=== PATIENT | female | born 1935 | race Caucasian/White ===

== ENCOUNTER 2019-08-06 16:30 | Inpatient (IN) | payer OTHER ==
[~2019-08-06] VITALS: Ht 160 cm; Wt 71.7 kg
--- NOTE | 2019-08-06 16:30 | NUR ---
PT BIBA TO BED 3
--- NOTE | 2019-08-06 16:35 | NUR ---
PT PLACED ON 3 LEAD ECG AND PULSE OX.
--- NOTE | 2019-08-06 16:39 | NUR ---
DR. TORRES AT BEDSIDE.
--- NOTE | 2019-08-06 16:43 | NUR ---
83/F BIBA ALS FROM [place]. CC: LOWER ABD PAIN AND DISTENSION, TEMP 99 F, N/V. PT HAS RECENT DX OF CHOLECYSTITIS BUT DID NOT GET SURGERY. SLIGHTLY TACHYCARDIC. 99.3 TEMP AT TRIAGE. PLACED ON BEDSIDE MONITOR. GCS 13. PORTUGUESE SPEAKING. HX- HLD, GERD, HTN, DEMENTIA, PARKINSON'S, DM, PSYCHOSIS
[2019-08-06 16:45] VITALS: BP 137/66
[2019-08-06] MEDS ORDERED: ONDANSETRON 4 MG/2 ML VIAL IVP ONE (17:00)
[2019-08-06] MEDS ORDERED: MORPHINE SULFATE 2 MG/ML SYR IVP ONE (17:00)
[2019-08-06] MEDS ORDERED: NACL 0.9% 1,000 ML IV ONE (17:00)
--- NOTE | 2019-08-06 17:03 | NUR ---
Kellen campa in ED - 08/06/[address] TORRES MADE AWARE THAT NO URINE OUTPUT FROM STRAIGHT CATH.
--- NOTE | 2019-08-06 17:32 | NUR ---
ATTEMPTED TO COLLECT URINE VIA STRAIGHT CATH BUT UNABLE DUE TO PT POSITIONING AND BODY HABITUS. WILL ATTEMPT TO OBTAIN URINE WHEN ANOTHER NURSE ABLE TO ASSIST WITH STRAIGHT CATH.
--- NOTE | 2019-08-06 17:32 | NUR ---
U/S TECH AT BEDSIDE
--- NOTE | 2019-08-06 17:35 | NUR ---
NOTIFIED LAB TO COME DRAW LABS.
--- NOTE | 2019-08-06 17:40 | NUR ---
BLASTING MACHINE OPERATOR AT BEDSIDE
[2019-08-06 18:01] LABS: HEMATOCRIT 47.4 % (36-48); HEMOGLOBIN 15.3 g/dL (12.0-16.0); MEAN CORPUSCULAR HEMOGLOBIN 31 pg (27-31); MEAN CORPUSCULAR HGB CONC 32 g/dL (33-37); MEAN CORPUSCULAR VOLUME 94.7 fL (80-94); PLATELET COUNT (AUTO) 236 K/uL (140-450); RED BLOOD CELL COUNT(AUTO) 5.01 MIL/uL (4.20-5.40); RED CELL DISTRIBUTION WIDTH 15.7 % (11.6-13.7); WHITE BLOOD COUNT (AUTO) 25.7 K/uL (4.8-10.8)
[2019-08-06] MEDS ORDERED: metroNIDAZOLE 500 MG/NS PREMIX 100 ML IV ONE (18:10)
[2019-08-06] MEDS ORDERED: cefTRIAXone 2,000 MG in DEXTROSE 5% 100 ML IV ONE (18:10)
[2019-08-06 18:35] LABS: BASOPHILS % (MANUAL) 0 % (0-2); EOSINOPHILS % (MANUAL) 0 % (0-4); LYMPHOCYTES % (MANUAL) 4 % (20-46); MONOCYTES % (MANUAL) 4 % (5-12)
--- NOTE | 2019-08-06 18:52 | NUR ---
PT URINATED PRIOR TO STRAIGHT CATH. STRAIGHT CATH INSERTED WITH LESS THAN 5 ML RETURN OF YELLOW URINE. Addendum: 08/06/19 at 1931 by EMELY URINATED SMALL AMOUNT PRIOR TO STRAIGHT CATH
--- NOTE | 2019-08-06 19:03 | NUR ---
DR. TORRES MADE AWARE THAT NO URINE OUTPUT FROM STRAIGHT CATH.
[2019-08-06] MEDS ORDERED: DOCUSATE SODIUM 100 MG GELCAP PO PRN (19:20)
[2019-08-06] MEDS ORDERED: ACETAMINOPHEN 325 MG TAB PO PRN (19:20)
[2019-08-06] MEDS ORDERED: ONDANSETRON 4 MG/2 ML VIAL IM/IVP PRN (19:20)
[2019-08-06] MEDS ORDERED: MORPHINE SULFATE 2 MG/ML SYR IVP PRN (19:20)
--- NOTE | 2019-08-06 19:32 | NUR ---
LAB STATES RERUNNING CMP RESULTS CURRENTLY.
[2019-08-06] MEDS ORDERED: DEXTROSE 50% 50 ML SYR IVP PRN (19:35)
[2019-08-06] MEDS ORDERED: cefTRIAXone 2,000 MG VIAL ONE (19:38)
[2019-08-06 19:52] LABS: PROTHROMBIN TIME 12.4 secs (10.8-13.4)
[2019-08-06] MEDS ORDERED: DOCU-299 PO (20:04)
[2019-08-06] MEDS ORDERED: ACET-2619 PO (20:06)
[2019-08-06] MEDS ORDERED: PRAM0.5T4 PO (20:08)
[2019-08-06] MEDS ORDERED: OLAN2.5T1 PO (20:09)
[2019-08-06 20:13] LABS: ALBUMIN 2.2 g/dL (3.4-5.0); ANION GAP 16.2 (8-16); ASPARTATE AMINOTRANSFERASE 41 U/L (15-37); CARBON DIOXIDE 24.5 mmol/L (21-32); CHLORIDE 107 mmol/L (98-107); CREATININE 2.5 mg/dL (0.6-1.3); GLUCOSE 143 mg/dL (74-106); LIPASE 328 U/L (73-393); POTASSIUM 3.7 mmol/L (3.5-5.1); SODIUM SERUM 144 mmol/L (136-145); TOTAL BILIRUBIN 0.5 mg/dL (0.0-1.0)
[2019-08-06 20:17] LABS: UREA NITROGEN, BLOOD 62 mg/dL (7-18)
--- NOTE | 2019-08-06 20:28 | NUR ---
CHECKED PT SKIN WITH FANTASMA BUSTILLOS. NO WOUNDS NOTED DURING WOUND CHECK.
[2019-08-06 20:38] LABS: MAGNESIUM 2.6 mg/dL (1.8-2.4); PHOSPHORUS 4.4 mg/dL (2.5-4.9); THYROID STIMULATING HORMONE 3.03 uIU/mL (0.34-3.74)
--- NOTE | 2019-08-06 20:50 | NUR ---
PT BROUGHT UP BY ADALBERTO, SHE IS AOX1 ON 2 LITERS VIA N/C.PT BREATHING WITH OPEN MOUTH AND USING ACCESSORY MUSCLES. PT LUNGS CLEAR BUT WHEEZING WITH EXPIRATION. 02 STATING AT 96%. T 98.3 RR 24 B/P 127/66 P 100. STOMACH ROUND AND DISTENDED BOWEL SOUNDS PRESENT. PT SKIN INTACT, SHE HAS A LEFT HAND 20G RUNNING N/S AT 100MLS/HR. PT PLACED ON FALLS PRECAUTIONS DUE TO BEING UNABLE TO AMBULATE. REPORT GIVEN BY ALEXSANDRA AT BEDSIDE.
[2019-08-06 21:00] VITALS: BP 127/66
[2019-08-06] MEDS: BLOOD GLUCOSE MONITORING 1 DEV DEV FS SCH (21:00)
--- NOTE | 2019-08-06 21:00 | NUR ---
Patient will be admitted to care of Dr. Velázquez. Admited to TELE. Will go to room 124B. Belongings list completed. Report to TRESSA Menjivar.
--- NOTE | 2019-08-06 21:15 | NUR ---
RESIDENT DR HARMON AT BEDSIDE EVALUATING PT.
--- NOTE | 2019-08-06 22:10 | NUR ---
PT HAD BLOOD DRAWS AT BEDSIDE AND IS NOW BEING TAKEN DOWN FOR CT OF ABDOMEN/ PELVIS WITHOUT CONTRAST.
--- NOTE | 2019-08-06 22:30 | NUR ---
PT BROUGHT BACK FORM CT SCAN . PT GIVEN ALL DUE MEDS AND FLUIDS RUNNING ORDERED. NUCLEAR MEDICINE CALLED TO MAKE SURE PT IS TO BE NPO AFTER MIDNIGHT FOR HIDA SCAN IN THE AM.
[2019-08-06] MEDS: PANTOPRAZOLE 40 MG INJ VIAL IVP SCH (23:34)
[2019-08-06] MEDS: DEXT 5% /NACL 0.9% 1,000 ML IV SCH (23:34)
[2019-08-07] VITALS: BP 152/84
[2019-08-07 04:00] VITALS: BP 156/76
[2019-08-07] MEDS: BLOOD GLUCOSE MONITORING 1 DEV DEV FS SCH ×4 (06:05→21:00)
[2019-08-07 06:13] LABS: BASOPHILS % (AUTO) 0.1 % (0.0-2.0); HEMATOCRIT 45.3 % (36-48); HEMOGLOBIN 14.4 g/dL (12.0-16.0); LYMPHOCYTES # (AUTO) 0.8 K/uL (2.5-16.5); LYMPHOCYTES % (AUTO) 3.4 % (20.5-51.1); MEAN CORPUSCULAR HEMOGLOBIN 30 pg (27-31); MEAN CORPUSCULAR HGB CONC 32 g/dL (33-37); MEAN CORPUSCULAR VOLUME 95.9 fL (80-94); MONOCYTES % (AUTO) 4.1 % (1.7-9.3); NEUTROPHILS # (AUTO) 22.2 K/uL (1.8-7.7); NEUTROPHILS % (AUTO) 92.4 % (42.2-75.2); PLATELET COUNT (AUTO) 201 K/uL (140-450); RED BLOOD CELL COUNT(AUTO) 4.73 MIL/uL (4.20-5.40); RED CELL DISTRIBUTION WIDTH 15.4 % (11.6-13.7); WHITE BLOOD COUNT (AUTO) 24.1 K/uL (4.8-10.8)
[2019-08-07] MEDS: metroNIDAZOLE 500 MG/NS PREMIX 100 ML IV SCH ×3 (06:23→21:37)
[2019-08-07 06:58] LABS: ANION GAP 14.2 (8-16); CARBON DIOXIDE 27.3 mmol/L (21-32); CHLORIDE 107 mmol/L (98-107); GLUCOSE 157 mg/dL (74-106); POTASSIUM 3.5 mmol/L (3.5-5.1); SODIUM SERUM 145 mmol/L (136-145)
[2019-08-07 06:59] LABS: CHOL/HDL RATIO 6.1 (1-4.5)
--- NOTE | 2019-08-07 07:15 | NUR ---
RECEIVED PT FROM SPORTS MEDICINE TRAINER NURSE EULALIA FOR CONTINUITY OF CARE. PT IN STABLE CONDITION. RESPIRATIONS EVEN AND UNLABORED, 02 2L VIA NC. SAFETY MEASURES IN PLACE. BED IN LOW POSITION. BED ALARM ON. CALL LIGHT AT BEDSIDE. WILL CONTINUE TO MONITOR.
[2019-08-07 07:21] LABS: APPEARANCE,URINE SL CLOUDY (CLEAR); BILIRUBIN,URINE NEGATIVE (NEGATIVE); BLOOD, URINE TRACE-I (NEGATIVE); COLOR,URINE YELLOW (YELLOW); LEUKOCYTE ESTERASE ,URINE TRACE (NEGATIVE); NITRITE, URINE NEGATIVE (NEGATIVE); PH,URINE 5.5 (5.0-9.0); UGLUCOSE NEGATIVE (NEGATIVE)
--- NOTE | 2019-08-07 07:32 | NUR ---
X-RAY AT BEDSIDE AT THIS TIME. PT IN STABLE CONDITION.
--- NOTE | 2019-08-07 07:45 | NUR ---
SPOKE TO PATIENTS DAUGHTER FRANCO ALVARADO ON THE PHONE FOR CONSENT FOR HIDA SCAN. FRANCO VERBALIZED CONSENT TO PERFORM HIDA SCAN. CLAUDIA PEREYRA R.N. CONFIRMED HIDA SCAN CONSENT.
[2019-08-07 07:48] LABS: RBC,URINE 0-5 /HPF (0-5)
[2019-08-07] MEDS: DEXT 5% /NACL 0.9% 1,000 ML IV SCH (07:48)
[2019-08-07 07:49] LABS: URINE AMORPHOUS URATE 1+ /HPF (None Seen)
[2019-08-07 08:00] VITALS: BP 103/70
--- NOTE | 2019-08-07 08:04 | NUR ---
PATIENT OFF UNIT FOR HIDA SCAN AT THIS TIME. PATIENT IN STABLE CONDITION.
[2019-08-07] MEDS ORDERED: MORPHINE SULFATE 2 MG/ML SYR IVP SCH (08:05)
[2019-08-07 08:29] LABS: UREA NITROGEN, BLOOD 62 mg/dL (7-18)
--- NOTE | 2019-08-07 08:43 | NUR ---
PATIENT HAS BEEN SCREENED AND CATEGORIZED MODERATE NUTRITION RISK. PATIENT WILL BE SEEN WITHIN 3-5 DAYS OF ADMISSION. 08/09/19 08/11/[address]
[2019-08-07] MEDS: PRAMIPEXOLE 0.5 MG TAB PO SCH ×3 (09:00→18:33)
[2019-08-07] MEDS: DOCUSATE SODIUM 100 MG GELCAP PO SCH ×2 (09:00→21:37)
--- NOTE | 2019-08-07 10:30 | NUR ---
CHANGED AND CLEANED PT AFTER URINATION. PT TOLERATED WELL. BED IN LOW POSITION. BED ALARM ON. CALL LIGHT AT BEDSIDE. WILL CONTINUE TO MONITOR.
[2019-08-07] MEDS: PANTOPRAZOLE 40 MG INJ VIAL IVP SCH (10:31)
--- NOTE | 2019-08-07 11:16 | NUR ---
DC PLANNIN YRS OLD FEMALE PATIENT WAS ADMITTED FROM [facility] WITH A DX OF SEPSIS , CHOLECYSTITIS, AND ACUTE KIDNEY FAILURE. PT HAS A HX OF GERD, HTN, HLD , PSYCHOSIS ,DEMENTIA AND PARKINSON'S DISEASE. ABDOMINAL ULTRASOUND SHOWED CHOLECYSTITIS. ADMINISTERED IVF, IV ROCEPHIN AND FLAGYL . CONSULTED WITH SURGEON DR GEORGES. CM TO FOLLOW Addendum: 08/08/19 at 1441 by Tracy Acosta CM SEEN BY SURGEON-WOULD NOT RECOMMEND ELECTIVE LAP NEERAJ. RECOMMEND GI FOR ERCP. DR. VALVERDE CANCELLED ERCP-PATIENT DOES NOT NEED IT. ON ROCEPHIN, PROTONIX IV. DC PLAN PENDING ON PATIENT'S RESPONSE TO TREATMENT. CM TO FOLLOW. Addendum: 08/10/19 at 1017 by Abby Mcqueen CM DC PLANNING: PATIENT HAS A DISCHARGE ORDER TO TRANSFER BACK TO [facility] TO CONTINUE IV ROCEPHIN FOR 7 MORE DAYS. FAXED ALL THE PAPER WORK TO [facility], AWAITING FOR THE RESPONSE . JESSE TO FOLLOW Addendum: 08/10/19 at 1329 by Abby Mcqueen CM DC PLANNING: RECEIVED A CALL FROM CAPRICE AT [facility], PATIENT CAN GO TO ROOM [facility] # TO GIVE REPORT [phone] PER CAPRICE DIEHL ARRANGED TRANSPORT MANAGER ENVIRONMENTAL AFFAIRS TIME 3 PM .NOTIFIED MARI BUSTILLOS Addendum: 08/10/19 at 1331 by Abby Mcqueen CM DC PLANNING RECEIVED A CALL FROM DR GILL TO HOLD DISCHARGE NEEDS A CLEARANCE FROM GI AND SURGEON .CALLED [facility] AND HOLD THE DISCHARGE. Addendum: 08/11/19 at 1547 by Abby Mcqueen CM DC PLANNING: BOTH DR GEORGES AND DR LUKE SEEN PATIENT AND DISCUSSED WITH PT'S DAUGHTER FRANCO (DECISION MAKER) PER PROGRESS NOTED DAUGHTER DECLINE THE SURGERY. CONTINUE CURRENT MEDICATION AND THERAPY. CM TO FOLLOW Addendum: 08/12/19 at 1159 by Abby Mcqueen CM DC PLANNING: WBC 17.7 TODAY ,DR HOWARD RECOMMENDED CONTINUE IV ABX FLAGYL AND CONSIDER SURGICAL EVALUATION FOR CHOLECYSTECTOMY , STILL ON DISCUSSION REGARDING SURGERY WITH DR LUKE. CM TO FOLLOW. Addendum: 08/13/19 at 1403 by Abby Mcqueen CM DC PLANNING: PER DR GILL SURGERY CANCELED AND FAMILY AGREED TO GO WITH HOSPICE CONTACTED SARMAD FROM [facility] AND FAXED ALL THE PAPERWORK . FAXED ALL THE PAPERWORK TO [facility]. JESSE TO FOLLOW Addendum: 08/13/19 at 1431 by Abby Mcqueen CM DC PLANNING RECEIVED A CALL FROM SARMAD AT [facility] STATED PATIENT CAN GO BACK TO [facility] ON SKILLED LEVEL OF CARE NO HOSPICE AT THIS TIME. CALLED [facility] SPOKE WITH CAPRICE PT CAN GO TO ROOM [facility] ,ARRANGED TRANSPORT WITH [employer] TRANSPORT MANAGER ENVIRONMENTAL AFFAIRS TIME 4-5 PM . PER SHANE MITCHELL BILL WILL BED [facility]. NOTIFIED DARRYL BUSTILLOS Addendum: 08/13/19 at 1533 by Abby Mcqueen CM DC PLANNING: IM LETTER DISCUSSED WITH DAUGHTER FRANCO , AND SHE AGREED PATIENT TO GO BACK TO [facility] AND NO HOSPICE AT THIS TIME.
--- NOTE | 2019-08-07 11:25 | NUR ---
Building Surveyor Note: Basic Screen: Yes High Risk DC Screen Yes Name: FRANCO ALVARADO` Isaiah Relationship: DAUGHTER Pre-Admission Living Arrangements: SNF Other: [facility] Prior ADL Needs Assistance Current Home Health Name/Tel: N/A Current DME/02 Name/Tel: [facility], [facility] Current Hospice Name/Tel: N/A Current Dialysis Name/Tel: N/A Healthcare Decision Maker: Next of Kin Advance Directive No Physician Orders for Life Sustaining Treatment Form Yes Patient/Family Have Educational Needs No Discipline: Case Mgt/Social Svcs Tentative Discharge Plan/Destination: SNF/ECF Other: [facility] Will require assistance post discharge: No Referred to Dry Pan Charger: No Tentative Discharge Plan Summary: Patient is an 83-year-old female admitted for sepsis and cholecystitis. Patient has PMHX of GERD, HLD, psychosis, DM, Parkinson's Disease, dementia, and fatty liver. Patient was admitted from [place]. SW contacted Concha from [place] [phone]. Per Concha, patient is intermediate and is on a bed hold. Concha stated that patient needs limited assistance with ADLs. Concha stated that patient is not alert/oriented at base line. Tentative discharge plan is for patient to return to [place]. No further needs identified. Signature: GRETCHEN Fernandez Date: Aug 07, 2019 Time: 11:23
[2019-08-07 12:00] VITALS: BP 116/79
--- NOTE | 2019-08-07 13:50 | NUR ---
DR. VALVERDE AT BEDSIDE FOR ASSESSMENT. PT IN STABLE CONDITION.
[2019-08-07] MEDS ORDERED: MAGNESIUM CITRATE 300 ML BTL PO SCH (14:30)
--- NOTE | 2019-08-07 14:45 | NUR ---
LYNN DEL REAL SPOKE WITH FAMILY MEMBER FOR TELEPHONE CONSENT FRANCO ALVARADO (DAUGHTER) VERBALIZED CONSENT FOR ERCP AND EGD. KAMALA Alexander.Wei. AND DARRYL Reilly. WITNESS AT THIS TIME.
[2019-08-07] MEDS: LACTATED RINGERS 1,000 ML IV SCH (14:49)
[2019-08-07 15:22] LABS: ALBUMIN 1.8 g/dL (3.4-5.0); BILIRUBIN,DIRECT 0.1 mg/dL (0.0-0.3); TOTAL BILIRUBIN 0.4 mg/dL (0.0-1.0)
--- NOTE | 2019-08-07 15:51 | NUR ---
X-RAY AT BEDSIDE. PATIENT IN STABLE CONDITION.
[2019-08-07 16:00] VITALS: BP 135/54
--- NOTE | 2019-08-07 16:10 | NUR ---
ZIMMERMAN PLACED AT THIS TIME. PT TOLERATED WELL. BED IN LOW POSITION. BED ALARM ON. CALL LIGHT AT BEDSIDE. WILL CONTINUE TO MONITOR.
--- NOTE | 2019-08-07 18:14 | NUR ---
PT SLEEP AT THIS TIME. RESPIRATIONS EVEN AT THIS TIME. BED IN LOW POSITION. BED ALARM ON. CALL LIGHT AT BEDSIDE. WILL CONTINUE TO MONITOR.
[2019-08-07] MEDS: SENNA 8.6 MG TAB PO SCH (18:34)
[2019-08-07] MEDS: POLYVINYL ALCOHOL 1.4% OP 15 ML SOL OP SCH (18:34)
--- NOTE | 2019-08-07 19:15 | NUR ---
GAVE REPORT TO AMBULANCE ASSISTANT NURSE FOR CONTINUITY OF CARE. PT IN STABLE CONDITION. INFORMED AMBULANCE ASSISTANT NURSE LACTATED RINGER NOT COMPATIBLE WITH ROCEPHIN. AMBULANCE ASSISTANT NURSE VERBALIZED UNDERSTANDING.
--- NOTE | 2019-08-07 19:16 | NUR ---
RECEIVED BEDSIDE REPORT FROM AM SHIFT RN. PATIENT IS SLEEPY. AROUSABLE TO NAME. NO SOB. WITH IVF INFUSING. IV SITE AT LEFT HAND 20G. WITH INDWELLING ZIMMERMAN CATH DRAINING YELLOW URINE. PATIENT DENIES PAIN. NPO EXCEPT MEDS. LOW BED AND BED ALARM IN PLACE. PLAN OF CARE WAS DISCUSSED. CALL LIGHT WITHIN REACH. WILL CONTINUE TO MONITOR.
[2019-08-07 20:00] VITALS: BP 152/58
--- NOTE | 2019-08-07 21:19 | NUR ---
DUE MEDS GIVEN ORDERED. NO A/R NOTED. TOLERATED WELL.
[2019-08-07] MEDS: OLANZapine 2.5 MG TAB PO SCH (21:36)
[2019-08-08] VITALS: BP 146/72
--- NOTE | 2019-08-08 00:12 | NUR ---
PATIENT IS SLEEPING. V/S TAKEN AND RECORDED. RESPIRATION EVEN AND UNLABORED. DENIES PAIN.
[2019-08-08] MEDS: LACTATED RINGERS 1,000 ML IV SCH ×2 (00:15→04:46)
[2019-08-08 04:00] VITALS: BP 131/59
[2019-08-08] MEDS: metroNIDAZOLE 500 MG/NS PREMIX 100 ML IV SCH ×3 (05:37→22:35)
--- NOTE | 2019-08-08 05:37 | NUR ---
GAVE FLAGYL 500MG IVPB ORDERED. TOLERATED WELL. NO A/R NOTED. NO SOB. WILL CONTINUE TO MONITOR.
[2019-08-08] MEDS: BLOOD GLUCOSE MONITORING 1 DEV DEV FS SCH ×4 (06:49→21:00)
--- NOTE | 2019-08-08 06:50 | NUR ---
DR. Pura VALVERDE CALLED AND ASKED TO HAVE RN HANDLE MAKER TO CANCELL TODAY. WILL STILL EVALUATE IF NEEDED TO BE DONE TOMORROW. TRESSA ANNE HANDLE MAKER MADE AWARE. .
--- NOTE | 2019-08-08 07:00 | NUR ---
PATIENT IS RESTING. RESPIRATION EVEN AND UNLABORED. NO SOB. DENIES PAIN. WILL ENDORSE TO AM SHIFT RN THAT SURGERY IS CANCELLED PER CHARGE NURSE MOUNIKA. SHE SAID DR. VALVERDE CALLED. ENDORSE TO AM SHIFT RN FOR CONTINUITY OF CARE.
--- NOTE | 2019-08-08 07:00 | NUR ---
REPORT GIVEN BY ALPHONSO-RN AT BEDSIDE. PT RESTING IN BED, AOX1- CZECH SPEAKING, ON 2L/NC, LEFT HAND #20G RUNNING LR. BLE NON PITTING EDEMA. ZIMMERMAN CATHETER IN PLACE. BEDBOUND. DISCUSSED PLAN OF CARE AND PT VERBALIZED UNDERSTANDING. NO S/S OF RESPIRATORY DISTRESS OR DISCOMFORT NOTED AT THIS TIME. WILL CONTINUE TO MONITOR.
[2019-08-08 07:17] LABS: BASOPHILS % (AUTO) 0.1 % (0.0-2.0); HEMATOCRIT 39.7 % (36-48); HEMOGLOBIN 12.8 g/dL (12.0-16.0); LYMPHOCYTES # (AUTO) 0.5 K/uL (2.5-16.5); MEAN CORPUSCULAR HEMOGLOBIN 31 pg (27-31); MEAN CORPUSCULAR HGB CONC 32 g/dL (33-37); MEAN CORPUSCULAR VOLUME 95.1 fL (80-94); MONOCYTES # (AUTO) 0.8 K/uL (0.8-1.0); MONOCYTES % (AUTO) 4.2 % (1.7-9.3); NEUTROPHILS # (AUTO) 16.8 K/uL (1.8-7.7); NEUTROPHILS % (AUTO) 92.7 % (42.2-75.2); PLATELET COUNT (AUTO) 219 K/uL (140-450); RED BLOOD CELL COUNT(AUTO) 4.17 MIL/uL (4.20-5.40); RED CELL DISTRIBUTION WIDTH 15.8 % (11.6-13.7); WHITE BLOOD COUNT (AUTO) 18.1 K/uL (4.8-10.8)
[2019-08-08 07:44] LABS: CARBON DIOXIDE 27.7 mmol/L (21-32); CHLORIDE 111 mmol/L (98-107); CREATININE 1.5 mg/dL (0.6-1.3); GLUCOSE 126 mg/dL (74-106); POTASSIUM 3.7 mmol/L (3.5-5.1); SODIUM SERUM 147 mmol/L (136-145); UREA NITROGEN, BLOOD 54 mg/dL (7-18)
[2019-08-08 08:00] VITALS: BP 146/64
[2019-08-08] MEDS: PANTOPRAZOLE 40 MG INJ VIAL IVP SCH (08:55)
[2019-08-08] MEDS: POLYVINYL ALCOHOL 1.4% OP 15 ML SOL OP SCH ×3 (08:55→16:34)
[2019-08-08] MEDS: DOCUSATE SODIUM 100 MG GELCAP PO SCH ×2 (08:57→22:37)
[2019-08-08] MEDS: SENNA 8.6 MG TAB PO SCH ×3 (08:58→22:36)
[2019-08-08] MEDS: PRAMIPEXOLE 0.5 MG TAB PO SCH ×3 (08:58→16:34)
--- NOTE | 2019-08-08 08:58 | NUR ---
SCHEDULED MEDICATIONS GIVEN AND TOLERATED WELL. PT C/O PAIN 10/29- MEDICATED WITH MORPHINE. NO S/S OF RESPIRATORY DISTRESS OR DISCOMFORT NOTED AT THIS TIME. WILL CONTINUE TO MONITOR.
[2019-08-08 10:33] LABS: ALBUMIN 1.6 g/dL (3.4-5.0); BILIRUBIN,DIRECT 0.1 mg/dL (0.0-0.3); TOTAL BILIRUBIN 0.4 mg/dL (0.0-1.0)
[2019-08-08] MEDS: NACL 0.45% 1,000 ML IV SCH (11:23)
--- NOTE | 2019-08-08 11:30 | NUR ---
BLOOD GLUCOSE 107- INSULIN COVERAGE NOT GIVEN. PT TOLERATED WELL. NO S/S OF RESPIRATORY DISTRESS OR DISCOMFORT NOTED AT THIS TIME. WILL CONTINUE TO MONITOR.
[2019-08-08 12:00] VITALS: BP 130/51
--- NOTE | 2019-08-08 13:12 | NUR ---
SCHEDULED MEDICATIONS GIVEN AND TOLERATED WELL. NO S/S OF RESPIRATORY DISTRESS OR DISCOMFORT NOTED AT THIS TIME. WILL CONTINUE TO MONITOR.
[2019-08-08 16:00] VITALS: BP 138/63
--- NOTE | 2019-08-08 16:51 | NUR ---
SCHEDULED MEDICATIONS GIVEN AND TOLERATED WELL. BLOOD GLUCOSE 114- NO INSULIN COVERAGE NEEDED. PT TOLERATED WELL. NO S/S OF RESPIRATORY DISTRESS OR DISCOMFORT NOTED AT THIS TIME. WILL CONTINUE TO MONITOR.
--- NOTE | 2019-08-08 18:48 | NUR ---
SPOKE WITH DR. MOISE CONCERNING PT SWALLOW EVALUATION. PT TOLERATED APPLE SAUCE BETTER THAN PEAR SLICES. PT PREFERRED THE PUREE CONSISTENCY WHEN ASKED. PT IS ABLE TO CHEW AND SWALLOW WITHOUT INCIDENT OF CHOKING OR COUGHING. PT TOLERATED WELL. NO S/S OF RESPIRATORY DISTRESS OR DISCOMFORT NOTED AT THIS TIME. WILL CONTINUE TO MONITOR.
[2019-08-08 20:00] VITALS: BP 137/47
--- NOTE | 2019-08-08 22:00 | NUR ---
PT BEING MORE LETHARGIC, CHECKED BS- 127 MG/DL; TEMP 98.7; 99% 83 HR; 138/ 51; PT IS ABLE TO RESPOND WITH PAIN STIMULATION.
--- NOTE | 2019-08-08 22:30 | NUR ---
INFORMED DR. MOISE THAT PT IS LETHARGIC AND THAT SHE IS SWALLOWING BUT VERY SLOWLY, AND ORAL MEDS WAS BARELY GIVEN. DR. MOISE SAID TO HOLD FOR NOW IF MEDS ARE NOT BEING TAKEN. SHE KNOWS PT AND THAT WHEN SHE'S AWAKE SHE WILL MORE ABLE TO TAKE HER MEDS. ALL HER MEDICATIONS WERE GIVEN BUT IT TOOK 30 MINS FOR HER TO SWALLOW THE MEDS
[2019-08-08] MEDS: OLANZapine 2.5 MG TAB PO SCH (22:36)
[2019-08-08] MEDS ORDERED: CRUSHER, PILL MC ONE (22:39)
[2019-08-09] VITALS: BP 138/51
--- NOTE | 2019-08-09 01:22 | NUR ---
PT CHECKED, VITALS IS OK, PT SLEEPING NOW, STILL W/ O2 VIA NASAL CANNULA
[2019-08-09 04:00] VITALS: BP 127/60
[2019-08-09] MEDS: metroNIDAZOLE 500 MG/NS PREMIX 100 ML IV SCH ×3 (05:07→21:37)
--- NOTE | 2019-08-09 06:42 | NUR ---
INFORMED DR. GILL ABOUT THE IVF RATE AND THAT PT;S URINE OUTPUT IS 100 ML IN 12 HOURS. SHE SAID SHE WILL INCREASE THE RATE OF IVF
--- NOTE | 2019-08-09 06:44 | NUR ---
BLOOD SUGAR EARLIER WAS [address] MOREJON WANTS ME TO RECHECK B.S. WILL CARRY OUT ORDERS. INFORMED HER THAT I INFORMED DR. MOISE LAST NIGHT THAT SHE IS NOT SWALLOWING WELL. FOR HER TO TAKE THE MEDS WITH APPLE SAUCE( 2 SPOONFULS WILL TAKE 30 MINS.
[2019-08-09] MEDS: NACL 0.45% 1,000 ML IV SCH ×2 (06:53→10:00)
--- NOTE | 2019-08-09 06:56 | NUR ---
PTS'S BS. IS [address] GILL
--- NOTE | 2019-08-09 07:05 | NUR ---
REPORT RECEIVED FROM MANAGER BRAND NURSE AT BEDSIDE FOR CONTINUITY OF CARE. PATIENT LETHARGIC. ON 2L O2 VIA NC. FLACCC-0. SKIN INTACT. IV SITE INTACT, PATENT, ASYMPTOMATIC, INFUSING IVF WELL. UPDATED BOARD. SAFETY PRECAUTIONS IN PLACE, CALL LIGHT WITHIN REACH, BED IN LOWEST POSITION WITH BRAKES LOCKED, WILL CONTINUE TO MONITOR PATIENT.
[2019-08-09] MEDS: BLOOD GLUCOSE MONITORING 1 DEV DEV FS SCH ×4 (07:30→20:52)
[2019-08-09 08:00] VITALS: BP 148/71
[2019-08-09] MEDS: SENNA 8.6 MG TAB PO SCH ×2 (09:00→21:05)
[2019-08-09] MEDS: PRAMIPEXOLE 0.5 MG TAB PO SCH ×3 (09:00→17:57)
[2019-08-09] MEDS: DOCUSATE SODIUM 100 MG GELCAP PO SCH ×2 (09:00→21:08)
[2019-08-09 09:34] LABS: BASOPHILS # (AUTO) 0.1 K/uL (0.00-0.22); BASOPHILS % (AUTO) 0.6 % (0.0-2.0); EOSINOPHILS % (AUTO) 0.1 % (0.0-4.0); HEMATOCRIT 38.9 % (36-48); HEMOGLOBIN 12.2 g/dL (12.0-16.0); LYMPHOCYTES # (AUTO) 0.8 K/uL (2.5-16.5); LYMPHOCYTES % (AUTO) 5.6 % (20.5-51.1); MEAN CORPUSCULAR HEMOGLOBIN 30 pg (27-31); MEAN CORPUSCULAR HGB CONC 32 g/dL (33-37); MEAN CORPUSCULAR VOLUME 95.8 fL (80-94); MONOCYTES % (AUTO) 6.6 % (1.7-9.3); NEUTROPHILS # (AUTO) 12.9 K/uL (1.8-7.7); NEUTROPHILS % (AUTO) 87.1 % (42.2-75.2); PLATELET COUNT (AUTO) 216 K/uL (140-450); RED BLOOD CELL COUNT(AUTO) 4.06 MIL/uL (4.20-5.40); RED CELL DISTRIBUTION WIDTH 15.6 % (11.6-13.7); WHITE BLOOD COUNT (AUTO) 14.8 K/uL (4.8-10.8)
[2019-08-09] MEDS: PANTOPRAZOLE 40 MG INJ VIAL IVP SCH (10:01)
--- NOTE | 2019-08-09 10:01 | NUR ---
ORDERED MEDICATIONS GIVEN. ORAL MEDICATIONS WITHHELD BECAUSE PATIENT LETHARGIC, DR. GILL AWARE. WILL CONTINUE TO MONITOR PATIENT.
[2019-08-09] MEDS: POLYVINYL ALCOHOL 1.4% OP 15 ML SOL OP SCH ×3 (10:02→17:57)
[2019-08-09 10:33] LABS: ALBUMIN 1.6 g/dL (3.4-5.0); ANION GAP 10.8 (8-16); ASPARTATE AMINOTRANSFERASE 32 U/L (15-37); CARBON DIOXIDE 29.3 mmol/L (21-32); CHLORIDE 111 mmol/L (98-107); CREATININE 1.2 mg/dL (0.6-1.3); GLUCOSE 114 mg/dL (74-106); POTASSIUM 4.1 mmol/L (3.5-5.1); SODIUM SERUM 147 mmol/L (136-145); TOTAL BILIRUBIN 0.4 mg/dL (0.0-1.0); UREA NITROGEN, BLOOD 43 mg/dL (7-18)
--- NOTE | 2019-08-09 11:21 | NUR ---
BLOOD SUGAR 107, NO COVERAGE NEEDED. PATIENT LETHARGIC BUT AROUSABLE TO NAME AND LIGHT PAIN. WILL CONTINUE TO MONITOR PATIENT.
[2019-08-09] MEDS: DEXT 5% / NACL 0.45% 1,000 ML IV SCH ×2 (11:22→21:11)
[2019-08-09 12:00] VITALS: BP 114/60
--- NOTE | 2019-08-09 13:42 | NUR ---
ORDERED MEDICATIONS GIVEN. PATIENT TOLERATED THEM WELL. PATIENT LETHARGIC BUT AROUSABLE. WILL CONTINUE TO MONITOR PATIENT.
[2019-08-09 16:00] VITALS: BP 113/63
--- NOTE | 2019-08-09 16:10 | NUR ---
CALLED GILBERT LICONA FOR CONSENT OVER PHONE FOR CT OF CHEST WITH CONTRAST. SHE VERBALIZED CONSENT, TRESSA ANDREWS, WITNESS. PATIENT LETHARGIC BUT AROUSABLE. WILL CONTINUE TO MONITOR PATIENT.
--- NOTE | 2019-08-09 16:25 | NUR ---
DR PRICE IN TO SEE THE PATIENT, WILL WAIT FOR HIS RECOMMENDATIONS.
--- NOTE | 2019-08-09 16:50 | NUR ---
CALLED MONAE, DAUGHTER AGAIN, FOR CONSENT OVER PHONE FOR CT OF ABD/CHEST WITH CONTRAST. SHE VERBALIZED CONSENT, ASSISTANT PURCHASING MANAGER JOWIE WITNESS. PATIENT LETHARGIC BUT AROUSABLE. WILL CONTINUE TO MONITOR PATIENT.
--- NOTE | 2019-08-09 17:10 | NUR ---
PATIENT LEFT FLOOR TO GO TO RADIOLOGY FOR CT OF CHEST AND ABDOMEN WITH CONTRAST. WILL WAIT FOR PATIENT'S RETURN.
--- NOTE | 2019-08-09 17:25 | NUR ---
PATIENT OUT OF ROOM ROTATING EQUIPMENT ENGINEER TO ROUTINE ABG AT A LATER TIME
--- NOTE | 2019-08-09 17:30 | NUR ---
PATIENT BACK FROM CT, WILL WAIT FOR RESULTS.
--- NOTE | 2019-08-09 19:10 | NUR ---
REPORT GIVEN TO TUBE PUSHER NURSE AT BEDSIDE FOR CONTINUITY OF CARE. PATIENT RESTING IN BED COMFORTABLY, NO S/S OF SOB OR DISTRESS NOTED.
--- NOTE | 2019-08-09 19:11 | NUR ---
RECEIVED REPORT FROM ANN ROBERTS RN AT BEDSIDE FOR CONTINUITY OF CARE. PATIENT LETHARGIC. ON 2L O2 VIA NC. FLACC-0. SKIN INTACT. IV SITE INTACT, PATENT, ASYMPTOMATIC, INFUSING IVF WELL. SAFETY PRECAUTIONS IN PLACE, CALL LIGHT WITHIN REACH, BED IN LOWEST POSITION, WILL CONTINUE TO MONITOR PATIENT.
[2019-08-09 20:00] VITALS: BP 140/58
[2019-08-09] MEDS ORDERED: NYSTATIN CRE 100 MU/GM 15 GM TUBE TP SCH (21:00)
[2019-08-09] MEDS: OLANZapine 2.5 MG TAB PO SCH (21:05)
--- NOTE | 2019-08-09 21:15 | NUR ---
BAR CODE OF D5 1/2 NS NOTSCANNING, VERIFIED W/ CHARGE NURSE LÁZARO
--- NOTE | 2019-08-09 21:28 | NUR ---
NO NYSTATIN- MYCOSTATIN CREAM AT BIN OR PT'S BEDSIDE. INFORMED PETROLEUM REFINERY LABORER, SAID NO STOCK AT THE HOSPITAL, SHOULD FF UP IN THE A.M .
--- NOTE | 2019-08-09 22:00 | NUR ---
OFFLOADED PATIENTS PRESSURE AREAS, WITH LUMBER CARRIER OPERATOR MURALI, NO REDNESS NOTED ON BUTTOCKS, NO WOUNDS. WILL CONTINUE TO MONITOR
--- NOTE | 2019-08-09 23:12 | NUR ---
PT SLEEPING STILL LETHARGIC, NO SIGNS OF RESPIRATORY DISTRESS,NO SIGNS AND SYMPTOMS OF ABDOMINAL PAIN, WILL CONTINUE TO MONITOR.
[2019-08-10] VITALS: BP 127/66
--- NOTE | 2019-08-10 02:52 | NUR ---
PT TURNED TO SIDE, OFFLOADED PRESSURE AREAS WITH PILLOWS, CHECKED, NO BM, PATIENT DRY.
[2019-08-10 04:00] VITALS: BP 134/68
--- NOTE | 2019-08-10 04:00 | NUR ---
TURNED PT OFFLOADING DONE ON BILATERAL FEET, AND PLACED PILLOWS ON ONE SIDE. AND CHECKED ON CHUX, PATIENT DRY, NO BM FOR THIS SHIFT.
[2019-08-10] MEDS: metroNIDAZOLE 500 MG/NS PREMIX 100 ML IV SCH ×3 (05:17→20:58)
--- NOTE | 2019-08-10 05:31 | NUR ---
R HAND PITTING EDEMA +2, ELEVATED EXTREMITY ABOVE HEART LEVEL
--- NOTE | 2019-08-10 05:45 | NUR ---
OFFLOADING DONE, CHECKED PATIENT'S AND TURNED HER TO SIDE
[2019-08-10] MEDS: BLOOD GLUCOSE MONITORING 1 DEV DEV FS SCH ×4 (05:46→20:35)
[2019-08-10] MEDS: INSULIN LISPRO SLIDING SCALE 100 UNITS/ML VIAL SUBQ PRN (05:48)
[2019-08-10 06:44] LABS: HEMATOCRIT 36.8 % (36-48); HEMOGLOBIN 11.7 g/dL (12.0-16.0); MEAN CORPUSCULAR HEMOGLOBIN 31 pg (27-31); MEAN CORPUSCULAR HGB CONC 32 g/dL (33-37); MEAN CORPUSCULAR VOLUME 96.8 fL (80-94); PLATELET COUNT (AUTO) 253 K/uL (140-450); WHITE BLOOD COUNT (AUTO) 14.7 K/uL (4.8-10.8)
[2019-08-10] MEDS: DEXT 5% / NACL 0.45% 1,000 ML IV SCH ×2 (07:05→17:05)
--- NOTE | 2019-08-10 07:30 | NUR ---
RECEIVED ENDORSEMENT FROM DAY SHIFT NURSE. PT LYING IN BED. LETHARGIC, APHASIC. FLACC 0, NO SOB, RESPIRATIONS ARE EVEN AND UNLABORED, O2 2L. IV RH 20G AND LH 20G INTACT AND PATENT. RUNNING ON 120CC D5NS 100CC. SKIN INTACT. SAFETY MEASURES IN PLACE, BED IN LOW POSITION. TELE MONITOR ATTACHED. CALL LIGHT WITHIN REACH. WILL CONTINUE TO MONITOR.
[2019-08-10 08:00] VITALS: BP 124/56
[2019-08-10 08:07] LABS: AMYLASE 30 U/L (25-115); LIPASE 50 U/L (73-393)
[2019-08-10 08:30] LABS: BASOPHILS % (MANUAL) 0 % (0-2); EOSINOPHILS % (MANUAL) 1 % (0-4); LYMPHOCYTES % (MANUAL) 10 % (20-46); MONOCYTES % (MANUAL) 5 % (5-12)
[2019-08-10] MEDS: PANTOPRAZOLE 40 MG INJ VIAL IVP SCH (09:09)
[2019-08-10] MEDS: POLYVINYL ALCOHOL 1.4% OP 15 ML SOL OP SCH ×3 (09:09→17:27)
[2019-08-10] MEDS: NYSTATIN POW 100 MU/GM 15 GM BTL TP SCH ×2 (09:10→20:59)
[2019-08-10] MEDS: DOCUSATE SODIUM 100 MG GELCAP PO SCH ×2 (09:10→20:58)
[2019-08-10] MEDS: PRAMIPEXOLE 0.5 MG TAB PO SCH (09:10)
[2019-08-10] MEDS: SENNA 8.6 MG TAB PO SCH ×2 (09:10→20:58)
--- NOTE | 2019-08-10 09:30 | NUR ---
DUE MORNING MEDS GIVEN. MEDS CRUSHED AND MIXED WITH APPLE SAUCE. HOB ELEVATED FOR ASPIRATION PRECAUTION. WITH DIFFICULTY SWALLOWING. WAS ABLE SWALLOW MEDS EVENTUALLY. NO COUGH, NO DIFFICULTY BREATHING. WILL CONTINUE TO MONITOR
[2019-08-10 10:48] LABS: ALBUMIN 1.5 g/dL (3.4-5.0); ASPARTATE AMINOTRANSFERASE 30 U/L (15-37); CARBON DIOXIDE 26.4 mmol/L (21-32); CREATININE 1.2 mg/dL (0.6-1.3); GLUCOSE 162 mg/dL (74-106); TOTAL BILIRUBIN 0.2 mg/dL (0.0-1.0); UREA NITROGEN, BLOOD 32 mg/dL (7-18)
[2019-08-10 10:57] LABS: ANION GAP 12.5 (8-16); CHLORIDE 110 mmol/L (98-107); POTASSIUM 3.9 mmol/L (3.5-5.1); SODIUM SERUM 145 mmol/L (136-145)
--- NOTE | 2019-08-10 11:15 | NUR ---
NGT FR12 INSERTED ORDERED. AWAITING XRAY TO CONFIRM PLACEMENT
[2019-08-10] MEDS ORDERED: FUROSEMIDE 20 MG/2 ML VIAL IVP SCH (11:30)
--- NOTE | 2019-08-10 11:30 | NUR ---
ST AT BEDSIDE TO DO SWALLOW EVAL
[2019-08-10 12:00] VITALS: BP 114/55
--- NOTE | 2019-08-10 12:19 | NUR ---
* ST NOTE * Pt seen at bedside w/RN David present. Pt alert and cooperative, reporting no c/o pain at this time. RN just finished inserting NGT, but MD still wishing to proceed w/swallow evaluation at this time. Bedside dysphagia and oral mechanism exams completed. See evaluation report for further details. Pt unable to reply whether she can sense/feel tactile stimulation on both cheeks, forehead or chin at this time. Clinician also unable to assess pt's gag reflex. Pt however alert and oriented x1 to person, but not to place or time. Pt additionally presenting with weakened volitional cough and throat clearing, but productive. Pt tolerating 7/7 po trials of thin liquid apple juice via a straw w/o overt s/s of aspiration. Pt also tolerating 4/4 po trials of puree apple sauce 1/2 - 1 tsp at a time w/o overt s/s of aspiration. Pt presenting with mild residue in lateral sulci after PO intake of puree textures, but presenting with adequate clearance if alternating btwn solids & liquids as instructed by clinician. Pt and nsg David education completed re: aspiration precautions and safe swallow compensatory strategies pt and caregivers could utilize to aid pt w/swallow function, w/pt indifferent but caregiver/David verbalizing understanding and agreement w/clinician's recommendations. It is thus recommended pt's PO diet consistency be modified to puree textures w/thin liquids for all meals, w/strict aspiration precautions in place. ST to ff 2x/week for 1 week to assure pt's tolerance of recommended consistency, and for a possible diet upgrade pending improvement in pt's condition. Pt and caregiver/Nsg David education completed re: results of evaluation; benefits of receiving skilled DIRECTOR VACCINE services; POC; and prognosis for improvement; with pt nodding head in agreement and nsg David verbalizing understanding and agreement w/clinician's recommendations. Recommend: - PO DIET CONSISTENCY OF PUREE TEXTURES W/THIN LIQUIDS FOR ALL MEALS - PO MEDICATION ADMINISTRATION CRUSHED IN PUREE TEXTURES - MAINTAIN STRICT ASPIRATION PRECAUTIONS DURING PO INTAKE - PREFERABLY PROVIDE THIN LIQUIDS VIA CUP OR SPOON, BUT STRAW OKAY WELL - Pt requires total assistance w/feeding - SIT PT UP AT 80-90 DEGREE ANGLE DURING PO INTAKE; FEED PT SLOWLY; PROVIDE SMALL BITES/SIPS; AND ALTERNATE BTWN SOLIDS & LIQUIDS ST to ff 2x/week for 1 week to assure pt's tolerance of recommended consistency. NOMS Level 3 Time In/Out 11:30 - 12:00
--- NOTE | 2019-08-10 13:20 | NUR ---
PT IN BED ASLEEP AROUSABLE TO NAME. BLOOD SUGAR 136. NO DIFFICULTY BREATHING O2SAT 100%, NO C/O PAIN
[2019-08-10 16:00] VITALS: BP 130/64
--- NOTE | 2019-08-10 17:20 | NUR ---
CALLED DAUGHTER FRANCO ALVARADO TO OBTAIN CONSENT FOR LAP NEERAJ. DAUGHTER REFUSED TO GIVE CONSENT DUE TO PT'S WEAK CONDITION. RESIDENT DR. NIX MADE AWARE
--- NOTE | 2019-08-10 19:15 | NUR ---
ENDORSED TO NIGHT NURSE FOR CONTINUITY OF CARE. IN STABLE CONDITION
--- NOTE | 2019-08-10 19:16 | NUR ---
RECEIVED PATIENT IN STABLE CONDITION FROM AM SHIFT NURSE FOR CONTINUITY OF CARE. RESPIRATIONS EVEN, UNLABORED. CONTINUES ON O2 2L VIA NC, O2SAT 100%. NGTUBE NOTED TO LEFT NARE. SKIN WARM/DRY. IV SITE TO RIGHT FOREARM 20G PATENT/INTACT, INFUSING FLUIDS WELL. FLACC 0. NO S/SX ACUTE DISTRESS. ZIMMERMAN CATHETER PATENT WITH YELLOW URINE DRAINING TO GRAVITY. CALL LIGHT WITHIN REACH. WILL CONTINUE TO MONITOR.
[2019-08-10 20:00] VITALS: BP 153/49
--- NOTE | 2019-08-10 21:15 | NUR ---
PATIENT CONTINUES IN STABLE CONDITION. OPENS EYES TO NAME WELL TACTILE STIMULI. FLACC 0. NO S/SX ACUTE DISTRESS. CALL LIGHT WITHIN REACH. WILL CONTINUE TO MONITOR.
--- NOTE | 2019-08-10 23:18 | NUR ---
PATIENT IS ASLEEP AND IN STABLE CONDITION. DUE MEDS GIVEN. FLACC 0. NO S/SX ACUTE DISTRESS. CALL LIGHT WITHIN REACH. WILL CONTINUE TO MONITOR.
[2019-08-11] VITALS: BP 135/56
--- NOTE | 2019-08-11 01:29 | NUR ---
ASLEEP AND IN STABLE CONDITION. NO C/O PAIN. NO S/SX ACUTE DISTRESS. CALL LIGHT WITHIN REACH. WILL CONTINUE TO MONITOR.
[2019-08-11] MEDS: DEXT 5% / NACL 0.45% 1,000 ML IV SCH (01:32)
--- NOTE | 2019-08-11 03:04 | NUR ---
PATIENT CONTINUES IN STABLE CONDITION. ASLEEP. NO C/O PAIN. NO S/SX ACUTE DISTRESS. SAFETY PRECAUTIONS IN PLACE. CALL LIGHT WITHIN REACH. WILL CONTINUE TO MONITOR.
[2019-08-11 04:00] VITALS: BP 136/60
[2019-08-11] MEDS: metroNIDAZOLE 500 MG/NS PREMIX 100 ML IV SCH ×2 (04:40→13:23)
--- NOTE | 2019-08-11 05:45 | NUR ---
PATIENT IN STABLE CONDITION. NO C/O PAIN. NO S/SX ACUTE DISTRESS. CALL LIGHT WITHIN REACH. WILL CONTINUE TO MONITOR.
[2019-08-11 06:20] LABS: HEMATOCRIT 36.5 % (36-48); HEMOGLOBIN 11.5 g/dL (12.0-16.0); MEAN CORPUSCULAR HEMOGLOBIN 30 pg (27-31); MEAN CORPUSCULAR HGB CONC 32 g/dL (33-37); MEAN CORPUSCULAR VOLUME 96.4 fL (80-94); PLATELET COUNT (AUTO) 202 K/uL (140-450); RED BLOOD CELL COUNT(AUTO) 3.79 MIL/uL (4.20-5.40); RED CELL DISTRIBUTION WIDTH 15.9 % (11.6-13.7); WHITE BLOOD COUNT (AUTO) 15.5 K/uL (4.8-10.8)
[2019-08-11] MEDS: BLOOD GLUCOSE MONITORING 1 DEV DEV FS SCH ×4 (06:30→21:20)
[2019-08-11 06:43] LABS: ALBUMIN 1.3 g/dL (3.4-5.0); ANION GAP 8.5 (8-16); ASPARTATE AMINOTRANSFERASE 21 U/L (15-37); CARBON DIOXIDE 29.8 mmol/L (21-32); CHLORIDE 108 mmol/L (98-107); GLUCOSE 144 mg/dL (74-106); POTASSIUM 3.3 mmol/L (3.5-5.1); SODIUM SERUM 143 mmol/L (136-145); TOTAL BILIRUBIN 0.2 mg/dL (0.0-1.0); UREA NITROGEN, BLOOD 24 mg/dL (7-18)
--- NOTE | 2019-08-11 07:25 | NUR ---
RECEIVED REPORT FROM LABORER PETROLEUM REFINERY NURSE. PT CURRENTLY LAYING IN BED, PT IS ASLEEP, AND DOES NOT SHOW ANY SIGNS OF PAIN AT THIS MOMENT. RESPIRATIONS ARE EVEN AND UNLABORED ON 2L NC AIR WITH NO SIGNS OF DISTRESS. SKIN IS INTACT WITH IV SITE ASYMPTOMATIC PATENT, IN RIGHT FA, FLUIDS INFUSING PER ORDER AND TOLERATING WELL. SAFETY MEASURES IN PLACE AND WILL CONTINUE TO MONITOR.
--- NOTE | 2019-08-11 07:30 | NUR ---
ENDORSED PATIENT IN STABLE CONDITION TO AM SHIFT NURSE.
--- NOTE | 2019-08-11 07:45 | NUR ---
PATIENT IN STABLE CONDITION. NO C/O PAIN. NO S/SX ACUTE DISTRESS. CALL LIGHT WITHIN REACH. WILL CONTINUE TO MONITOR.
[2019-08-11 08:00] VITALS: BP 135/55
[2019-08-11 08:20] LABS: BASOPHILS % (MANUAL) 1 % (0-2); EOSINOPHILS % (MANUAL) 2 % (0-4); LYMPHOCYTES % (MANUAL) 6 % (20-46); MONOCYTES % (MANUAL) 3 % (5-12)
[2019-08-11] MEDS: POLYVINYL ALCOHOL 1.4% OP 15 ML SOL OP SCH ×3 (09:58→17:00)
[2019-08-11] MEDS: SENNA 8.6 MG TAB PO SCH ×2 (09:58→21:21)
[2019-08-11] MEDS: DOCUSATE SODIUM 100 MG GELCAP PO SCH (09:58)
[2019-08-11] MEDS: PANTOPRAZOLE 40 MG INJ VIAL IVP SCH (09:58)
--- NOTE | 2019-08-11 09:59 | NUR ---
ADMINISTERED MEDICATIONS PER ORDER AND TOLERATED WELL. NO SIGNS OF DISTRESS NOTED AND STABLE VITAL SIGNS. SAFETY MEASURES IN PLACE AND WILL CONTINUE TO MONITOR.
[2019-08-11] MEDS: NYSTATIN POW 100 MU/GM 15 GM BTL TP SCH ×2 (11:00→21:22)
--- NOTE | 2019-08-11 11:55 | NUR ---
SPOKE TO REGARDING FEEDING.. PHYSICIAN STATED THAT NG TUBE FEEDING BE RESUMED. SURGERY WILL OCCUR TOMORROW. PT IS CURRENTLY SLEEPING WITH NO SIGNS OF DISTRESS. SAFETY MEASURES IN PLACE AND WILL CONTINUE TO MONITOR.
[2019-08-11 12:00] VITALS: BP 95/50
[2019-08-11] MEDS: NACL 0.45% 1,000 ML IV SCH (12:00)
[2019-08-11] MEDS ORDERED: FUROSEMIDE 20 MG/2 ML VIAL IVP SCH (12:26)
[2019-08-11] MEDS ORDERED: ALBUMIN HUMAN 25% 100 ML IV SCH (12:26)
[2019-08-11] MEDS ORDERED: POTASSIUM CHLORIDE 20% 40 MEQ/15 ML UDC GT SCH (12:27)
--- NOTE | 2019-08-11 13:38 | NUR ---
ADMINISTERED MEDICATIONS PER ORDERS AND TOLERATED WELL. NO SIGNS OF DISTRESS NOTED. PT COMPLAINS OF PAIN BUT CANNOT LOCALIZE WHERE, DR. MIGUEL INFORMED THAT NO PAIN MEDICATIONS TO BE GIVEN AT THIS TIME. FEEDING HAS BEEN STARTED PER DR. MIGUEL AT 20ML/HR AND TO BE TITRATED TOLERATED. SAFETY MEASURES IN PLACE AND WILL CONTINUE TO MONITOR.
--- NOTE | 2019-08-11 13:43 | NUR ---
08/11/19 RD INITIAL ASSESSMENT COMPLETED PLEASE REFER TO NUTRITION ASSESSMENT UNDER CARE ACTIVITY FOR ESTIMATED NUTRITIONAL NEEDS. 1. CONTINUE GLUCERNA 1.2 @ 65 ML/HR X 24 HR, START AT 20 ML/HR INCREASE GRADUALLY -THIS WILL PROVIDE 1560 ML OF VOLUME, 1872 CALORIES, AND 93.6 GM OF PROTEIN WHICH MEETS 100% OF ESTIMATED NUTRIENT NEEDS 2. CONTINUE FREE WATER FLUSH OF 150 ML Q6H 3. IF/WHEN PATIENT IS MEDICALLY STABLE FOR PO DIET CONSIDER RE-EVALUATION FOR SWALLOWING 4. RD TO FOLLOW-UP 2-3 DAYS, HIGH RISK CRISTOFER JUSTICE, ALCIDES
[2019-08-11 16:00] VITALS: BP 105/57
[2019-08-11] MEDS ORDERED: POTASSIUM CHLORIDE 10 MEQ TABER PO SCH (16:34)
--- NOTE | 2019-08-11 16:45 | NUR ---
BLOOD GLUCOSE IS CURRENTLY 110 AND NO INSULIN COVERAGE IS NEEDED. PT SAID SHE IS NOT IN ANY PAIN AND DOES NOT SHOW SIGNS OF DISTRESS. SAFETY MEASURES IN PLACE AND WILL CONTINUE TO MONITOR.
--- NOTE | 2019-08-11 17:05 | NUR ---
SPOKE TO DR. MIGUEL REGARDING POTASSIUM PO MEDICATION. ADVISED THAT POTASSIUM WAS GIVEN EARLIER IN SHIFT AND SHE INSTRUCTED NOT TO GIVE THE NEW ORDER FOR THE POTASSIUM PO. PATIENT IS ALERT AND AWAKE AND SAYS SHE IS OKAY. SAFETY MEASURES IN PLACE AND WILL CONTINUE TO MONITOR.
--- NOTE | 2019-08-11 18:50 | NUR ---
PT IS CURRENTLY SLEEPING BUT AROUSED TO NAME AND TOUCH. PT IS IN STABLE CONDITION WITH NO SIGNS OF DISTRESS. WILL ENDORSE PT TO INVENTORY CONTROL COORDINATOR NURSE.
[2019-08-11] MEDS: FAMOTIDINE 20 MG TAB PO SCH ×2 (18:56→21:20)
--- NOTE | 2019-08-11 19:30 | NUR ---
RECEIVED BEDSIDE REPORT FROM AM SHIFT RN FOR PT'S CONTINUITY OF CARE. PT IS AWAKE, LETHARGIC, DELAYED VERBAL RESPONSE TO TANZANIAN WORDS. PT IS ON POWER PRESS TENDER, ON 2L O2 VIA NC, HAS NGTUBE IN PLACE WITH GLUCERNA 1.2 FEEDING AT 20ML/HR, HAS RIGHT FA 22G WITH NS AT 20ML/HR, PT'S RIGHT HAND APPEARS TO BE EDEMATOUS, MD AWARE OF THE HAND, HAS ZIMMERMAN CATHETER IN PLACE WITH LIGHT RICO URINE IN COLOR, NON PITTING EDEMA ON BLE. EXPLAINED TO PT THE PROSTHETICS LAB TECHNICIAN ROUTINE, CALL LIGHT IS WITHIN REACH, SAFETY MEASURES IN PLACE. WILL MONITOR PT THROUGHOUT SHIFT.
[2019-08-11 20:00] VITALS: BP 133/57
--- NOTE | 2019-08-11 21:20 | NUR ---
BLOOD GLUCOSE CHECKED AND CHARTED. NO INSULIN COVERAGE NEEDED. ADMINISTERED SCHEDULED MEDICATIONS ORDERED. PT TOLERATED THEM WELL. NO RESIDUAL ASPIRATED FROM NGT, INCREASED TUBE FEEDING TO 40ML/HR. PT TOLERATING IT WELL. RADIOLOGY AT BEDSIDE TO PERFORM XRAY. PT AWAKE, NO SIGNS OF DISTRESS OR DISCOMFORT. PT'S URINE NOTED TO BE LIGHT RICO IN COLOR FROM THE ZIMMERMAN CATHETER. WILL CONTINUE TO MONITOR PT.
--- NOTE | 2019-08-11 23:00 | NUR ---
PT ASLEEP WITH NO SIGNS OF DISTRESS OR DISCOMFORT. INCREASED TUBE FEEDING TO 60ML/HR, PT TOLERATING IT WELL. WILL CONTINUE TO MONITOR PT.
[2019-08-12] VITALS: BP 140/57
--- NOTE | 2019-08-12 03:00 | NUR ---
PT NOTED TO BE WAKING UP INTERMITTENTLY HOLDING UP HAND TO REACH FOR THE NGT OR MOUTH AREA. NOT NOTED TO BE PULLING OUT NGTUBE. WILL CONTINUE TO MONITOR BEHAVIOR.
[2019-08-12 04:00] VITALS: BP 135/56
--- NOTE | 2019-08-12 04:00 | NUR ---
INCREASED FEEDING TO 65ML/HR. PT TOLERATING IT WELL. PT STOPPED WITH RAISING UP HAND TOWARD MOUTH/NGTUBE. VS CHECKED AND CHARTED. WILL CONTINUE TO MONITOR PT.
[2019-08-12] MEDS: BLOOD GLUCOSE MONITORING 1 DEV DEV FS SCH ×4 (05:30→20:20)
--- NOTE | 2019-08-12 05:30 | NUR ---
BLOOD GLUCOSE CHECKED AND CHARTED. PT WAS CHANGED AND REPOSITIONED. PT TOLERATING NG TUBE FEEDING AT 65ML/HR. PT AROUSABLE TO NAME. PT MADE COMFORTABLE, NO SIGNS OF DISTRESS OR DISCOMFORT. ELEVATED RIGHT ARM DT EDEMA. WILL CONTINUE TO MONITOR PT.
[2019-08-12 06:30] LABS: HEMATOCRIT 36.3 % (36-48); HEMOGLOBIN 11.8 g/dL (12.0-16.0); MEAN CORPUSCULAR HEMOGLOBIN 31 pg (27-31); MEAN CORPUSCULAR HGB CONC 33 g/dL (33-37); MEAN CORPUSCULAR VOLUME 96.6 fL (80-94); PLATELET COUNT (AUTO) 219 K/uL (140-450); RED BLOOD CELL COUNT(AUTO) 3.76 MIL/uL (4.20-5.40); RED CELL DISTRIBUTION WIDTH 15.8 % (11.6-13.7); WHITE BLOOD COUNT (AUTO) 17.7 K/uL (4.8-10.8)
--- NOTE | 2019-08-12 06:37 | NUR ---
PT ASLEEP WITH NO SIGNS OF DISTRESS. PT TOLERATING NG TUBE FEEDING AT 65ML/HR. URINE COLOR LIGHT RICO AND CLEAR IN APPEARANCE. WILL ENDORSE TO AM SHIFT RN FOR PT'S CONTINUITY OF CARE.
[2019-08-12 06:52] LABS: ANION GAP 8.9 (8-16); CARBON DIOXIDE 31.9 mmol/L (21-32); CHLORIDE 107 mmol/L (98-107); CREATININE 1.1 mg/dL (0.6-1.3); GLUCOSE 157 mg/dL (74-106); POTASSIUM 3.8 mmol/L (3.5-5.1); SODIUM SERUM 144 mmol/L (136-145); UREA NITROGEN, BLOOD 21 mg/dL (7-18)
--- NOTE | 2019-08-12 07:10 | NUR ---
RECEIVED PATIENT FROM CHRISTMAS TREE GRADER NURSE FOR CONTINUITY OF CARE. PATIENT IS SLEEPING. NO SIGNS OF DISTRESS NOTED. RESPIRATIONS EVEN AND UNLABORED, ROOM AIR. VISIBLE CHEST RISE AND FALL NOTED. ON TELE MONITORING. ABDOMEN ROUND AND NONTENDER. ON GTUBE FEEDING GLUCERNA 1.2 AT 65 ML/HR H20 FLUSH 150 Q6H. IV IN THE RIGHT FOREARM G22 RUNNING 1/2NS AT 20 ML/HR. NO SIGNS OF IV INFILTRATION. SKIN IS WARM, DRY, AND INTACT. RIGHT HAND EDEMA NOTED. ZIMMERMAN CATHETER IN PLACE. RICO URINE NOTED IN THE ZIMMERMAN BAG. FALL PRECAUTION IN PLACE. DNR. BED IN LOW POSITION. CALL LIGHT IS WITHIN REACH.. WILL CONTINUE TO MONITOR.
[2019-08-12 08:00] VITALS: BP 132/63
[2019-08-12] MEDS: POLYVINYL ALCOHOL 1.4% OP 15 ML SOL OP SCH ×3 (08:45→16:47)
[2019-08-12] MEDS: FAMOTIDINE 20 MG TAB PO SCH ×2 (08:46→20:47)
[2019-08-12] MEDS: SENNA 8.6 MG TAB PO SCH ×2 (08:46→20:47)
[2019-08-12] MEDS: NYSTATIN POW 100 MU/GM 15 GM BTL TP SCH ×2 (08:46→20:49)
[2019-08-12 08:55] LABS: BASOPHILS % (MANUAL) 0 % (0-2); EOSINOPHILS % (MANUAL) 0 % (0-4); LYMPHOCYTES % (MANUAL) 8 % (20-46); MONOCYTES % (MANUAL) 4 % (5-12)
[2019-08-12] MEDS ORDERED: metroNIDAZOLE 500 MG/NS PREMIX 100 ML IV SCH (09:00)
--- NOTE | 2019-08-12 10:36 | NUR ---
PATIENT IS SLEEPING AT THIS MOMENT. NO SIGNS OF DISTRESS NOTED BED IN LOW POSITION. CALL LIGHT IS WITHIN REACH. WILL CONTINUE TO MONITOR.
--- NOTE | 2019-08-12 11:10 | NUR ---
BLOOD SUGAR CHECK: 139. NO INSULIN COVERAGE NEEDED. PATIENT STATED CHEST PAIN OF 06/29, TOLERABLE. PATIENT STATED THAT HE WILL CALL IF HE NEEDS PAIN MEDICATION Addendum: 08/12/19 at 1123 by Princess Alessandra Priest RN WRONG PATIENT. PLEASE DISREGARD
--- NOTE | 2019-08-12 11:10 | NUR ---
BLOOD GLUCOSE CHECK: 152. WILL GIVE INSULIN COVERAGE.
[2019-08-12] MEDS: NACL 0.45% 1,000 ML IV SCH (11:12)
[2019-08-12] MEDS: INSULIN LISPRO SLIDING SCALE 100 UNITS/ML VIAL SUBQ PRN (11:29)
--- NOTE | 2019-08-12 11:29 | NUR ---
GIVEN 2 UNITS OF INSULIN IN THE LEFT UPPER ARM SUBQ FOR BLOOD SUGAR 152. PATIENT TOLERATED WELL. WILL CONTINUE TO MONITOR.
[2019-08-12 12:00] VITALS: BP 130/72
--- NOTE | 2019-08-12 12:47 | NUR ---
GIVEN ARTIFICIAL TEARS TO BOTH EYES. EXPLAINED MEDICATION. BED IN LOW POSITION. CALL LIGHT IS WITHIN REACH. WILL CONTINUE TO MONITOR.
--- NOTE | 2019-08-12 13:19 | NUR ---
STARTED NEW GTUBE FEEDING GLUCERNA 1.2 AT A RATE OF 65 ML/HR, H20 FLUSH 150 ML/HR Q6H. GASTRIC RESIDUAL IS 15 ML/HR. PATIENT IS TOLERATING THE FEEDING.
[2019-08-12] MEDS ORDERED: ALBUTEROL SULFATE/IPRATROPIU 3 ML SOL IH PRN (15:05)
--- NOTE | 2019-08-12 15:05 | NUR ---
DR. GILL DISCONTINUED IVF 1/2NS. PATIENT IV IS SALINE LOCK
--- NOTE | 2019-08-12 15:23 | NUR ---
PATIENT IS ASLEEP. ON 2L O2 VIA NC. NG TUBE FEEDING RUNNING AT 65 ML/HR. NO SIGNS OF DISTRESS NOTED. BED IN LOW POSITION. CALL LIGHT IS WITHIN REACH. WILL CONTINUE TO MONITOR.
--- NOTE | 2019-08-12 15:50 | NUR ---
P.T. NOTES D/C FROM P.T. AFTER TX, ENDORSED TO NURSING; NON AMBULATORY. Addendum: 08/12/19 at 1551 by Zulema Pack PT Amended: Links added.
--- NOTE | 2019-08-12 15:53 | NUR ---
UA SAMPLE COLLECTED FROM ZIMMERMAN CATHETER
[2019-08-12 16:00] VITALS: BP 136/82
--- NOTE | 2019-08-12 16:47 | NUR ---
BLOOD SUGAR CHECK: 129. NO INSULIN COVERAGE. GIVEN ARTIFICIAL TEARS TO BOTH EYES. WILL CONTINUE TO MONITOR
--- NOTE | 2019-08-12 17:17 | NUR ---
REPOSITIONED PATIENT. TOLERATED WELL
--- NOTE | 2019-08-12 18:20 | NUR ---
PATIENT ON THE PHONE WITH BROTHER.
--- NOTE | 2019-08-12 19:17 | NUR ---
ENDORSED PATIENT TO THE EXPLOSIVE ORDNANCE HANDLER NURSE FOR CONTINUITY OF CARE. PATIENT IS IN STABLE CONDITION.
--- NOTE | 2019-08-12 19:17 | NUR ---
RECEIVED PT AAOX1 , NID , IV SITE INTACT AND PATENT , BEDBOUND , LOW АНДРЕЙ SCALE , NID - O2 SAT WNL , ON O2 AT 2LPM/NC , W/ NGT TUBE FEEDING - WELL TOLERATED . SAFETY MEASURES IN PLACE - FALL RISK . POC DISCUSSED BUT POOR UNDERSTANDING DUE TO MENTAL STATUS . W/ FC DRAINING SCANTY URINE U.O. WILL CONT. TO MONITOR.
[2019-08-12 20:00] VITALS: BP 140/80
[2019-08-12] MEDS: PIPERACILLIN/TAZOBACTAM 3.375 GM in DEXTROSE 5% 50 ML IV SCH (20:47)
[2019-08-13] VITALS: BP 141/81
--- NOTE | 2019-08-13 | NUR ---
MADE ROUNDS , NO S/S OF ACUTE DISTRESS . WILL CONT. TO MONITOR.
[2019-08-13 01:20] LABS: APPEARANCE,URINE CLEAR (CLEAR); BILIRUBIN,URINE NEGATIVE (NEGATIVE); BLOOD, URINE 2+ (NEGATIVE); COLOR,URINE YELLOW (YELLOW); LEUKOCYTE ESTERASE ,URINE NEGATIVE (NEGATIVE); NITRITE, URINE NEGATIVE (NEGATIVE); PH,URINE 6.5 (5.0-9.0); UGLUCOSE NEGATIVE (NEGATIVE)
[2019-08-13 04:00] VITALS: BP 140/80
[2019-08-13] MEDS: PIPERACILLIN/TAZOBACTAM 3.375 GM in DEXTROSE 5% 50 ML IV SCH ×2 (04:32→14:46)
--- NOTE | 2019-08-13 05:00 | NUR ---
REFER TO [facility] - ONLY 100CC U.O - WILL CONT . TO MONITOR.
--- NOTE | 2019-08-13 06:00 | NUR ---
AROUSABLE , 02 SAT WNL - ON TELE. WILL CONT. TO MONITOR.
[2019-08-13] MEDS: BLOOD GLUCOSE MONITORING 1 DEV DEV FS SCH ×2 (06:47→12:01)
[2019-08-13 06:49] LABS: RBC,URINE 0-5 /HPF (0-5)
[2019-08-13] MEDS: INSULIN LISPRO SLIDING SCALE 100 UNITS/ML VIAL SUBQ PRN (07:04)
--- NOTE | 2019-08-13 07:10 | NUR ---
ENDORSED - PT - AWAKEABLE - STABLE .O2 SAT WNL.
--- NOTE | 2019-08-13 07:11 | NUR ---
RECEIVED REPORT FROM TELEVISION ENGINEER NURSE KAYLEN FOR CONTINUITY OF CARE. PT IN STABLE CONDITION. RESPIRATIONS EVEN AND UNLABORED, 02 2L VIA NC. IV INTACT AND PATENT. SAFETY MEASURES IN PLACE. BED IN LOW POSITION. BED ALARM ON. CALL LIGHT AT BEDSIDE. WILL CONTINUE TO MONITOR.
[2019-08-13 08:00] VITALS: BP 124/65
[2019-08-13] MEDS: SENNA 8.6 MG TAB PO SCH (09:36)
[2019-08-13] MEDS: FAMOTIDINE 20 MG TAB PO SCH (09:36)
[2019-08-13] MEDS: POLYVINYL ALCOHOL 1.4% OP 15 ML SOL OP SCH ×2 (09:43→14:46)
[2019-08-13] MEDS: NYSTATIN POW 100 MU/GM 15 GM BTL TP SCH (09:45)
--- NOTE | 2019-08-13 09:50 | NUR ---
PATIENT CLEANED AND CHANGED AT THIS TIME. PATIENT TOLERATED WELL. BED IN LOW POSITION. BED ALARM ON. RESPIRATIONS EVEN AND UNLABORED,02 4L VIA NC. CALL LIGHT AT BEDSIDE. WILL CONTINUE TO MONITOR. Addendum: 08/13/19 at 1347 by Concha Negron RN 02 2L VIA NC
[2019-08-13] MEDS ORDERED: PIPE1SOL IV (10:00)
[2019-08-13] MEDS ORDERED: LACT10CA1 PO (10:00)
[2019-08-13] MEDS ORDERED: FAMO20TA13 PO (10:01)
[2019-08-13] MEDS ORDERED: [UNRECOGNIZED DRUG - CODE] OP (10:02)
[2019-08-13] MEDS ORDERED: MYCPWD TP (10:02)
[2019-08-13 10:34] LABS: HEMATOCRIT 36.5 % (36-48); HEMOGLOBIN 11.6 g/dL (12.0-16.0); MEAN CORPUSCULAR HEMOGLOBIN 30 pg (27-31); MEAN CORPUSCULAR HGB CONC 32 g/dL (33-37); PLATELET COUNT (AUTO) 223 K/uL (140-450); RED CELL DISTRIBUTION WIDTH 16.1 % (11.6-13.7); WHITE BLOOD COUNT (AUTO) 18.6 K/uL (4.8-10.8)
[2019-08-13] MEDS ORDERED: FUROSEMIDE 20 MG/2 ML VIAL IVP SCH (11:00)
[2019-08-13 11:07] LABS: ANION GAP 7.9 (8-16); CARBON DIOXIDE 33.4 mmol/L (21-32); CHLORIDE 107 mmol/L (98-107); GLUCOSE 158 mg/dL (74-106); POTASSIUM 4.3 mmol/L (3.5-5.1); SODIUM SERUM 144 mmol/L (136-145); UREA NITROGEN, BLOOD 26 mg/dL (7-18)
[2019-08-13 11:30] LABS: LYMPHOCYTES % (MANUAL) 7 % (20-46); MONOCYTES % (MANUAL) 8 % (5-12)
[2019-08-13 12:00] VITALS: BP 136/69
--- NOTE | 2019-08-13 13:36 | NUR ---
PATIENT SLEEP AT THIS TIME. RESPIRATIONS EVEN AND UNLABORED, 02 4L VIA NC. CALL LIGHT AT BEDSIDE. BED IN LOW POSITION. BED ALARM ON. WILL CONTINUE TO MONITOR. Addendum: 08/13/19 at 1347 by Concha Negron RN 02 2L VIA NC
--- NOTE | 2019-08-13 15:55 | NUR ---
CALLED FRANCO (DAUGHTER) TO INFORM OF TRANSFER TO [place]. NO ANSWER AT THIS TIME.
[2019-08-13 16:00] VITALS: BP 155/75
--- NOTE | 2019-08-13 16:30 | NUR ---
GAVE REPORT TO [facility]TON STAFF NURSE AT [facility] FOR CONTINUITY OF CARE. ALL QUESTIONS ANSWERED AT THIS TIME. C[facility]TON VERBALIZED UNDERSTANDING OF INSTRUCTIONS.
--- NOTE | 2019-08-13 16:40 | NUR ---
GAVE DISCHARGE INSTRUCTIONS TO PATIENT AND TRANSPORT TEAM FOR CONTINUITY OF CARE. REMOVED ZIMMERMAN. DISCONNECTED FEEDING TUBES. PT PLACED ON GURNEY IN STABLE CONDITION.
--- NOTE | 2019-08-13 16:58 | NUR ---
CALLED FRANCO (DAUGHTER) TO INFORM OF TRANSFER TO [place]. NO ANSWER AT THIS TIME.
== END 2019-08-13 16:40 | DRG 177 ==
LOC: MED 16:30 → MTU 19:18
PROVIDERS: ADMIT General Practice; ATTEND General Practice
DX: J69.0 Pneumonitis due to inhalation of food and vomit (principal); N17.0 Acute kidney failure with tubular necrosis; E43 Unspecified severe protein-calorie malnutrition; K85.10 Biliary acute pancreatitis without necrosis or infection; J98.11 Atelectasis; N39.0 Urinary tract infection, site not specified; G93.40 Encephalopathy, unspecified; K80.01 Calculus of gallbladder with acute cholecystitis with obstruction; E11.9 Type 2 diabetes mellitus without complications; E78.5 Hyperlipidemia, unspecified; G20 Parkinson's disease; F02.80 Dementia in other diseases classified elsewhere, unspecified severity, without behavioral disturbance, psychotic disturbance, mood disturbance, and anxiety; I10 Essential (primary) hypertension; I25.10 Atherosclerotic heart disease of native coronary artery without angina pectoris; K76.0 Fatty (change of) liver, not elsewhere classified; K21.9 Gastro-esophageal reflux disease without esophagitis; R13.10 Dysphagia, unspecified; E83.41 Hypermagnesemia; Z66 Do not resuscitate; Z68.28 Body mass index [BMI] 28.0-28.9, adult; Z74.01 Bed confinement status; Z82.49 Family history of ischemic heart disease and other diseases of the circulatory system; Z79.899 Other long term (current) drug therapy
CPT/HCPCS: 36415; 36600; 71045; 71270; 74018; 76705; 78445; 80048; 80053; 80076; 81001; 82140; 82150; 82803; 82948; 83036; 83605; 83690; 83735; 83880; 84100; 84300; 84443; 85025; 85610; 85730; 86140; 87040; 87081; 87086; 92610; 93005; 93971; 96361; 96365; 96367; 96375; 97110; 97112; 97161-GP; 97530; 99285; A9510; C1758; C9113; J0696; J1644; J1940; J2270; J2405; J2543; J3490; J7030; J7042; J7060; J7120; P9046; Q0092; Q9967

== ENCOUNTER 2020-03-26 14:37 | Emergency (ER) | payer OTHER ==
[~2020-03-26] VITALS: Ht 142.2 cm; Wt 55.3 kg
[~2020-03-26 14:37] MED LIST: ACET-2619 PO; DOCU-299 PO; FAMO20TA13 PO; LACT10CA1 PO; MYCPWD TP; PIPE1SOL IV; [UNRECOGNIZED DRUG - CODE] OP
--- NOTE | 2020-03-26 14:37 | NUR ---
PATIENT [facility] BLS TO ER BED 05
[2020-03-26 14:45] VITALS: BP 148/76
[2020-03-26] MEDS ORDERED: KETOROLAC 30 MG/ML VIAL IVP ONE (14:55)
--- NOTE | 2020-03-26 14:56 | NUR ---
DR. RODRIGUEZ AT BEDSIDE.
--- NOTE | 2020-03-26 15:02 | NUR ---
LAB AT BEDSIDE
[2020-03-26] MEDS ORDERED: KETOROLAC 60 MG/2 ML VIAL IM ONE (15:10)
[2020-03-26 15:17] LABS: BASOPHILS % (AUTO) 0.5 % (0.0-2.0); EOSINOPHILS # (AUTO) 0.3 K/uL (0-0.4); EOSINOPHILS % (AUTO) 4.7 % (0.0-4.0); HEMATOCRIT 38.7 % (36-48); HEMOGLOBIN 12.6 g/dL (12.0-16.0); LYMPHOCYTES # (AUTO) 1.6 K/uL (2.5-16.5); MEAN CORPUSCULAR HEMOGLOBIN 32 pg (27-31); MEAN CORPUSCULAR HGB CONC 33 g/dL (33-37); MEAN CORPUSCULAR VOLUME 97.3 fL (80-94); MONOCYTES # (AUTO) 0.6 K/uL (0.8-1.0); MONOCYTES % (AUTO) 8.8 % (1.7-9.3); NEUTROPHILS # (AUTO) 4.7 K/uL (1.8-7.7); PLATELET COUNT (AUTO) 222 K/uL (140-450); RED BLOOD CELL COUNT(AUTO) 3.98 MIL/uL (4.20-5.40); RED CELL DISTRIBUTION WIDTH 15.6 % (11.6-13.7); WHITE BLOOD COUNT (AUTO) 7.4 K/uL (4.8-10.8)
--- NOTE | 2020-03-26 15:35 | NUR ---
84 Y/F PT BIBA FROM [place] FOR RLQ ABDOMINAL PAIN AT 7/10 SEVERITY. PT WAS ON 2L OXYGEN VIA NASAL CANNULA CONTINUOUSLY. TYLENOL GIVEN 30MINS GAS JOCKEY. PT IS A&OX2 HER BASELINE. A COPY OF DNR POLST FORM IS IN CHART. DENIES N/V/D, SOB, OR FEVER PER EMS. COVID TESTED ON 03/17/2020 WITH NEGATIVE RESULT. ABD LARGE AND PT REPORTS GENERALIZED ABD PAIN WHEN PALPATED. BS ACTIVE. PMH: DM, DEMENTIA, GERD, HTN, CAD, DEPENDENCE ON SUPPLEMENTAL OXYGEN MEDS: SEE LIST
--- NOTE | 2020-03-26 15:35 | NUR ---
Note undone in [facility] - 03/26/20 at 1535 by [facility] 54 Y/F PT BIBA FROM [place] FOR RLQ ABDOMINAL PAIN AT 7/10 SEVERITY. PT WAS ON 2L OXYGEN VIA NASAL CANNULA CONTINUOUSLY. TYLENOL GIVEN 30MINS BRANCH MECHANIC. PT IS A&OX2 HER BASELINE. A COPY OF DNR POLST FORM IS IN CHART. DENIES N/V/D, SOB, OR FEVER PER EMS. COVID TESTED ON 03/17/2020 WITH NEGATIVE RESULT. ABD LARGE AND PT REPORTS GENERALIZED ABD PAIN WHEN PALPATED. BS ACTIVE. PMH: DM, DEMENTIA, GERD, HTN, CAD, DEPENDENCE ON SUPPLEMENTAL OXYGEN MEDS: SEE LIST Addendum: 03/26/20 at 1535 by [facility] Amendment undone in [facility] - 03/26/20 at 1535 by [facility] 84 Y/F PT BIBA FROM [place] FOR RLQ ABDOMINAL PAIN AT 7/10 SEVERITY. PT WAS ON 2L OXYGEN VIA NASAL CANNULA CONTINUOUSLY. TYLENOL GIVEN 30MINS BRANCH MECHANIC. PT IS A&OX2 HER BASELINE. A COPY OF DNR POLST FORM IS IN CHART. DENIES N/V/D, SOB, OR FEVER PER EMS. COVID TESTED ON 03/17/2020 WITH NEGATIVE RESULT. ABD LARGE AND PT REPORTS GENERALIZED ABD PAIN WHEN PALPATED. BS ACTIVE. PMH: DM, DEMENTIA, GERD, HTN, CAD, DEPENDENCE ON SUPPLEMENTAL OXYGEN MEDS: SEE LIST
[2020-03-26 15:40] LABS: ALBUMIN 2.8 g/dL (3.4-5.0); AMYLASE 39 U/L (25-115); ASPARTATE AMINOTRANSFERASE 19 U/L (15-37); CARBON DIOXIDE 31.9 mmol/L (21-32); CHLORIDE 109 mmol/L (98-107); CREATININE 0.7 mg/dL (0.6-1.3); GLUCOSE 98 mg/dL (74-106); LIPASE 85 U/L (73-393); POTASSIUM 3.9 mmol/L (3.5-5.1); SODIUM SERUM 146 mmol/L (136-145); TOTAL BILIRUBIN 0.2 mg/dL (0.0-1.0); UREA NITROGEN, BLOOD 19 mg/dL (7-18)
--- NOTE | 2020-03-26 15:40 | NUR ---
PT BEING TAKEN TO CT VIA [facility]
--- NOTE | 2020-03-26 16:57 | NUR ---
PT ASLEEP IN BED. RR EVEN AND UNLABORED. BED IN LOWEST POSITION. SIDE RAIL UP X 1.
[2020-03-26 18:14] VITALS: BP 132/59
--- NOTE | 2020-03-26 18:15 | NUR ---
Patient discharged with v/s stable. Written and verbal after care instructions given and explained. Patient alert, oriented and verbalized understanding of instructions. Ambulance Transport with to senior care. All questions addressed prior to discharge. ID band removed. Patient advised to follow up with PMD. Rx of CIPRO AND MOTRIN given. Patient educated on indication of medication including possible reaction and side effects. Opportunity to ask questions provided and answered.
== END 2020-03-26 18:15 | disposition home or self-care (01) ==
LOC: MED 14:37
DX: N39.0 Urinary tract infection, site not specified (principal); E11.9 Type 2 diabetes mellitus without complications; F03.90 Unspecified dementia, unspecified severity, without behavioral disturbance, psychotic disturbance, mood disturbance, and anxiety; I10 Essential (primary) hypertension; K21.9 Gastro-esophageal reflux disease without esophagitis; Z79.899 Other long term (current) drug therapy
CPT/HCPCS: 36415; 74176; 80053; 81002; 82150; 83690; 85025; 96372; 99284; J1885

== ENCOUNTER 2022-10-29 14:38 | Emergency (ER) | payer OTHER ==
[~2022-10-29] VITALS: Ht 149.9 cm; Wt 68.0 kg
[2022-10-29 14:53] VITALS: BP 154/58; PULSE 77; RESP 20; TEMP 97.8; O2SAT 97
--- NOTE | 2022-10-29 15:20 | NUR ---
BS XRAY IN PROGRESS
--- NOTE | 2022-10-29 15:30 | NUR ---
ASSUMED CARE OF PT FROM CHARGE NURSE SHARON. SNIPPER OFFICE CALLED. SNIPPER GONE FOR THE DAY. LEFT PT'S H# SO THE SW CAN FOLLOW-UP WITH [facility].
--- NOTE | 2022-10-29 16:01 | NUR ---
PT TAKEN TO BED [address] SCAN.
[2022-10-29] MEDS ORDERED: oxyCODONE/APAP 5/325 MG 1 TAB TAB PO ONE (17:15)
--- NOTE | 2022-10-29 17:17 | NUR ---
DR. MCGRATH AT INFORMED PT THAT HER TIB AND PATELLA ARE FRACTURE. PT HE WOULD BE ORDERING A KNEE IMMOBILIZER AND PAIN MEDICATION AND SHE WOULD RETURN BACK TO [facility]F-WAY.
--- NOTE | 2022-10-29 17:35 | NUR ---
PT MEDICATED FOR PAIN ORDERED. WILL APPLY THE KNEE IMMOBILIZER THAT IS ORDERED.
--- NOTE | 2022-10-29 18:23 | NUR ---
PT'S DAUGHTER AT THE BS WITH THE PT.
--- NOTE | 2022-10-29 19:11 | NUR ---
[facility] REFERRAL CASE FILE# [id number]. REPORT TAKEN BY [employer] SITE MANAGER 2.
--- NOTE | 2022-10-29 19:33 | NUR ---
CALLED [facility] AND TALKED TO ISH MCELROY. GAVE REPORT THAT PT WILL BE DISCHARGE BACK TO SNF. FULL REPORTS GIVEN AND NO FURTHER QUESTION. ISH VERBALIZED UNDERSTANDING.
--- NOTE | 2022-10-29 19:38 | NUR ---
REPORT GIVEN TO EMS
--- NOTE | 2022-10-29 19:38 | NUR ---
TALKED TO PT'S DAUGHTER AND GAVE DISCHARGE INSTRUCTION.
[2022-10-29 19:40] VITALS: BP 127/48; PULSE 85; RESP 19; TEMP 97.8; O2SAT 100
--- NOTE | 2022-10-29 19:40 | NUR ---
Patient discharged with v/s stable. Written and verbal after care instructions given and explained. Patient verbalized understanding. Ambulance Transport with to [facility]. All questions addressed prior to discharge. Advised to follow up with PMD.
== END 2022-10-29 19:40 | disposition home or self-care (01) ==
LOC: MED 14:38
DX: S82.142A Displaced bicondylar fracture of left tibia, initial encounter for closed fracture (principal); E11.9 Type 2 diabetes mellitus without complications; F03.90 Unspecified dementia, unspecified severity, without behavioral disturbance, psychotic disturbance, mood disturbance, and anxiety; K21.9 Gastro-esophageal reflux disease without esophagitis; I10 Essential (primary) hypertension; Z79.899 Other long term (current) drug therapy; W19.XXXA Unspecified fall, initial encounter; Y93.89 Activity, other specified; Y92.89 Other specified places as the place of occurrence of the external cause; Y99.8 Other external cause status
CPT/HCPCS: 70450; 71045; 73562; 73590; 73610; 99285